=== PATIENT | male | born 2000 | race Two or more races ===

== ENCOUNTER 2024-03-11 03:09 | Emergency (ER) | payer SELFPAY ==
[2024-03-11] MEDS: Diphtheria,Pertussis(Acell),Tetanus Vaccine 0.5 ML Syringe IM ONE (03:47)
== END 2024-03-11 03:55 ==
LOC: MW.ED 03:09
DX: S90.851A Superficial foreign body, right foot, initial encounter (principal); Z23 Encounter for immunization; Y04.8XXA Assault by other bodily force, initial encounter
CPT/HCPCS: 90471; 90715; 99283-25